=== PATIENT | female | born 1975 | race Caucasian/White ===

== ENCOUNTER 2017-07-18 16:56 | Emergency (ER) | payer MEDICARE, MEDICAID ==
[2017-07-18 17:55] VITALS: BP 123/69
[2017-07-18] MEDS ORDERED: Ketorolac INJ* 60 MG/2 ML VIAL IM ONE (18:18)
--- NOTE | 2017-07-18 18:18 | UC ---
Neck Pain HPI - HPI Summary HPI Summary: PT IS C/O R NECK BEING STIFF AND SORE SINCE YESTERDAY. NO INJURY. MOVEMENT CAUSES DISCOMFORT INTO HER SHOULDER. NO FEVER OR NUMB/WEAKNESS TO ARMS. NO SELF TX. - History of Current Complaint Hx Obtained From: Patient Hx Last Menstrual Period: 06/30/17 Timing: Constant Pain Intensity: 9 Aggravating Factors: Movement Alleviating Factors: Nothing - Risk Factors Meningitis Risk Factors: Negative <Deepika Sin - Last Filed: 07/18/17 18:13> <Marianela Johnson - Last Filed: 07/18/17 20:47> - History of Current Complaint Chief Complaint: UCGeneralIllness Stated Complaint: NECK PAIN Time Seen by Provider: 07/18/17 18:12 - Allergies/Home Medications Allergies/Adverse Reactions: Allergies Allergy/AdvReac Type Severity Reaction Status Date / Time tramadol Allergy Severe Anaphylatic Verified 07/18/17 17:56 Shock varenicline [From Chantix] Allergy Severe Anaphylatic Verified 07/18/17 17:56 Shock vancomycin Allergy Intermediate swelling, Verified 07/18/17 17:55 bleeding NSAIDS (Non-Steroidal AdvReac GI issues Verified 07/18/17 17:56 Anti-Inflamma - pt does not take Home Medications: Home Medications Dexlansoprazole [Dexilant] 60 mg PO DAILY 07/18/17 [History Confirmed 07/18/17] Gabapentin CAP(*) [Neurontin 100 mg CAP(*)] 200 mg PO TID 07/18/17 [History Confirmed 07/18/17] PMH/Surg Hx/FS Hx/Imm Hx - Additional Past Medical History Additional PMH: chronic low back pain - Surgical History Surgical History: Yes Surgery Procedure, Year, and Place: neck - Social History Alcohol Use: Rare Substance Use Type: None Smoking Status (MU): Current Some Day Smoker Type: Cigarettes Household Exposure Type: Cigarettes - Immunization History Vaccination Up to Date: Yes <Deepika Sin - Last Filed: 07/18/17 18:13> Review Of Systems Constitutional: Positive: Negative Skin: Positive: Negative Eyes: Positive: Negative ENT: Positive: Negative Respiratory: Positive: Negative Cardiovascular: Positive: Negative Gastrointestinal: Positive: Negative Genitourinary: Positive: Negative Musculoskeletal: Positive: Other: - R neck pain Neurological: Positive: Negative Psychological: Positive: Negative All Other Systems Reviewed And Are Negative: Yes <Deepika Sin - Last Filed: 07/18/17 18:13> Physical Exam Triage Information Reviewed: Yes Appearance: Well-Appearing Vital Signs: Initial Vital Signs Temp 98.3 F 07/18/17 17:48 Pulse 74 07/18/17 17:48 Resp 18 07/18/17 17:48 BP 123/69 07/18/17 17:48 Pulse Ox 98 07/18/17 17:48 Vital Signs Reviewed: Yes Eyes: Positive: Conjunctiva Clear ENT: Positive: Normal ENT inspection Neck: Positive: Other: - c-spine non tender. R trapezius with spasm and tenderness. decreased rom due to pain. no adenopathy. Negative: Nuchal Rigidity Respiratory: Positive: Lungs clear, Normal breath sounds Cardiovascular: Positive: RRR, No Murmur Abdomen Description: Positive: Nontender, No Organomegaly, Soft Bowel Sounds: Positive: Present Musculoskeletal: Positive: Other: - 5/5 strength and 2+ reflexes x4. no saddle anesthesia. steady gait. thoracic and lumabr areas are not tender and rom is intact. no saddle anesthesia. Neurological: Positive: Alert Psychological: Positive: Age Appropriate Behavior Skin Exam: Normal <Deepika Sni - Last Filed: 07/18/17 18:13> Vital Signs: Initial Vital Signs Temp 98.3 F 07/18/17 17:48 Pulse 74 07/18/17 17:48 Resp 18 07/18/17 17:48 BP 123/69 07/18/17 17:48 Pulse Ox 98 07/18/17 17:48 <Marianela Johnson - Last Filed: 07/18/17 20:47> Re-Evaluation - Re-Evaluation Second Eval Re-Evaluation Time: 19:14 Change: Improved - demonstrates improved rom, notes less stiff. <Deepika Sin - Last Filed: 07/18/17 18:13> Neck Pain Course/Dx - Course Course Of Treatment: Exam c/w R trapezius mm spasm. will tx nsaid and mm relaxor - Differential Dx/Diagnosis Provider Diagnoses: R trapezius muscle spasm <Deepika Sin - Last Filed: 07/18/17 18:13> Discharge - Sign-Out/Discharge Documenting (check all that apply): Discharge - Billing Disposition and Condition Condition: STABLE Disposition: HOME <Deepika Sin - Last Filed: 07/18/17 18:13> - Billing Disposition and Condition Condition: STABLE Disposition: HOME <Marianela Johnson - Last Filed: 07/18/17 20:47> - Discharge Plan Condition: Stable Disposition: HOME Prescriptions: Cyclobenzaprine TAB* [Flexeril 10 MG TAB*] 10 mg PO TID PRN #6 tab PRN Reason: Spasms - Neck Naproxen [Naprosyn] 500 mg PO BID #10 tablet Patient Education Materials: Muscle Spasm (ED) Referrals: Sheryl Lara MD [Primary Care Provider] - 7 Days Attestation Statement User Type: Provider - I was available for consult. This patient was seen by the [facility]. The patient was not presented to, seen by, or examined by me. Ljj <Marianela Johnson - Last Filed: 07/18/17 20:47>
== END 2017-07-18 19:25 | disposition home or self-care (01) ==
LOC: UCCORT 16:56
DX: M62.838 Other muscle spasm (principal); F17.210 Nicotine dependence, cigarettes, uncomplicated; Z88.6 Allergy status to analgesic agent; Z88.3 Allergy status to other anti-infective agents; Z88.8 Allergy status to other drugs, medicaments and biological substances
CPT/HCPCS: 96372; 99202; G0463; J1885